=== PATIENT | male | born 1985 | race Caucasian/White ===

== ENCOUNTER → 2018-04-07 | Outpatient (CLI) | payer BC | LOC: RAD 15:51 | PROVIDERS: ATTEND Physician Assistant | DX: M71.22 Synovial cyst of popliteal space [Baker], left knee (principal); M66.88 Spontaneous rupture of other tendons, other sites; M25.462 Effusion, left knee ==

== ENCOUNTER 2018-05-07 06:13 | Day surgery (SDC) | payer BC ==
[~2018-05-07] VITALS: Ht 180.3 cm; Wt 109.7 kg
[~2018-05-07 06:13] MED LIST: ACET650S21 PO; IBUP200C5 PO
[2018-05-07] MEDS ORDERED: ROPIvacaine/PF 0.5%, 30 ML ONE (06:16)
[2018-05-07] MEDS ORDERED: LIDOCAINE/PF 1%, 30ML ONE (06:16)
[2018-05-07] MEDS ORDERED: EPINEPHRINE 1 MG/ML, 1ML ONE (06:16)
[2018-05-07] MEDS ORDERED: LACTATED RINGERS 1,000 ML IV SCH (06:58)
[2018-05-07] MEDS ORDERED: ONDANSETRON ODT 8 MG PO ONE (07:00)
[2018-05-07] MEDS ORDERED: GABAPENTIN 300 MG CAPSULE PO ONE (07:00)
[2018-05-07] MEDS ORDERED: ACETAMINOPHEN 500 MG TABLET PO ONE (07:00)
[2018-05-07 07:33] VITALS: BP 150/91
[2018-05-07] MEDS ORDERED: FENTANYL PF 100 MCG/2ML ONE ×2 (08:45→10:48)
[2018-05-07] MEDS ORDERED: MIDAZOLAM 1 MG/ML, 2ML ONE (08:45)
[2018-05-07] MEDS ORDERED: CEFAZOLIN 1,000 MG ONE (08:50)
[2018-05-07] MEDS ORDERED: PROPOFOL 10 MG/ML, 20ML ONE (08:50)
[2018-05-07] MEDS ORDERED: ONDANSETRON 2MG/ML, 2ML ONE (08:50)
[2018-05-07] MEDS ORDERED: LIDOCAINE-MPF 2% ,5ML ONE (08:50)
[2018-05-07] MEDS ORDERED: BUPIVACAINE/PF 0.5% ONE (08:50)
[2018-05-07] MEDS ORDERED: KETOROLAC 30 MG/1 ML ONE (08:50)
[2018-05-07] MEDS ORDERED: DEXAMETHASONE 4 MG/ML, 1ML ONE (08:50)
[2018-05-07] MEDS ORDERED: hydrALAzine 20 MG/ML, 1ML IV PRN (10:00)
[2018-05-07] MEDS ORDERED: PROMETHAZINE 25 MG/ML, 1ML IV PRN (10:00)
[2018-05-07] MEDS ORDERED: ALBUTEROL/IPRATROPIUM 2.5MG/0.5MG, 3 ML NPPB PRN (10:00)
[2018-05-07] MEDS ORDERED: EPHEDRINE 50 MG/ML, 1ML IM PRN (10:00)
[2018-05-07] MEDS ORDERED: METOCLOPRAMIDE 5 MG/ML, 2ML IV PRN (10:00)
[2018-05-07] MEDS ORDERED: SCOPOLAMINE PATCH, 1.5MG PATCH.TD72 TD PRN (10:00)
[2018-05-07] MEDS ORDERED: MORPHINE SULFATE 4 MG/ML, 1ML IVPush PRN (10:00)
[2018-05-07] MEDS ORDERED: OXYcodone 5 MG/5 ML ORAL.SOL UDC PO PRN (10:00)
[2018-05-07] MEDS ORDERED: ONDANSETRON ODT 8 MG PO PRN (10:00)
[2018-05-07] MEDS ORDERED: HYDROmorphone 1 MG/ML, 1ML IV PRN (10:00)
[2018-05-07] MEDS ORDERED: MIDAZOLAM 1 MG/ML, 2ML IV PRN (10:00)
[2018-05-07] MEDS ORDERED: MEPERIDINE/PF 25MG/0.5ML IVPush PRN (10:00)
[2018-05-07] MEDS ORDERED: OXYcodone 5 MG/5 ML ORAL.SOL UDC ONE (10:48)
[2018-05-07] MEDS: LABETALOL 5MG/ML, 20ML IV PRN ×2 (10:53→11:02)
[2018-05-07] MEDS: FENTANYL PF 100 MCG/2ML IV PRN ×2 (10:55→11:10)
[2018-05-07] MEDS ORDERED: LABETALOL 5MG/ML, 20ML ONE (10:59)
[2018-05-07] MEDS ORDERED: ENALAPRILAT 1.25 MG/ML, 2ML ONE (11:15)
[2018-05-07] MEDS ORDERED: ENALAPRILAT 1.25 MG/ML, 2ML IV ONE (11:30)
[2018-05-07] MEDS ORDERED: HYDROmorphone 2 MG/ML, 1ML ONE (12:00)
== END 2018-05-07 14:00 ==
LOC: OUT 06:13
PROVIDERS: ATTEND Orthopaedic Surgery
DX: M94.262 Chondromalacia, left knee (principal); M22.02 Recurrent dislocation of patella, left knee; Z87.891 Personal history of nicotine dependence; Z72.89 Other problems related to lifestyle
CPT/HCPCS: 27418; 29877; 64445; C1713; J0171; J0690; J1100; J1170; J1885; J2250; J2704; J2795; J3010; J3490; J7120; Q0162; J2405